=== PATIENT | female | born 1990 | race Caucasian/White ===

== ENCOUNTER 2018-02-26 18:49 | Emergency (ER) | payer SELFPAY ==
[2018-02-26 19:18] VITALS: BP 99/68
== END 2018-02-26 20:01 | disposition left against medical advice (07) ==
LOC: UCCORT 18:49
DX: T30.4 Corrosion of unspecified body region, unspecified degree (principal); Z53.21 Procedure and treatment not carried out due to patient leaving prior to being seen by health care provider

== ENCOUNTER 2018-11-26 19:35 | Emergency (ER) | payer OTHER ==
[2018-11-26 20:21] VITALS: BP 125/68
--- NOTE | 2018-11-26 21:30 | UC ---
Throat Pain/Nasal Jose HPI - HPI Summary HPI Summary: 28-year-old female presents with 2 day history of subjective fever, chills, general malaise, body aches, nasal congestion, clear nasal discharge, left ear pain, sore throat, and nonproductive cough. Denies dysphagia, shortness of breath, chest pain, abdominal pain, nausea, vomiting, or diarrhea. States she did receive her flu shot this year. - History of Current Complaint Chief Complaint: UCRespiratory Stated Complaint: ST,COUGH,BILATERAL EAR COMPLAINT Time Seen by Provider: 11/26/18 21:24 Hx Obtained From: Patient Hx Last Menstrual Period: 2 days Pain Intensity: 4 - Allergies/Home Medications Allergies/Adverse Reactions: Allergies Allergy/AdvReac Type Severity Reaction Status Date / Time No Known Allergies Allergy Verified 11/26/18 20:21 Home Medications: Home Medications Ibuprofen TAB* [Motrin TAB* 600 MG] 600 mg PO ONCE PRN 11/26/18 [History Confirmed 11/26/18] PMH/Surg Hx/FS Hx/Imm Hx Previously Healthy: Yes - Denies signifcant PMH - Surgical History Surgical History: Yes Surgery Procedure, Year, and Place: Tonsillectomy. PE Tubes - Family History Known Family History: Positive: Non-Contributory - Social History Occupation: Unemployed Lives: With Family Alcohol Use: None Substance Use Type: None Smoking Status (MU): Heavy Every Day Tobacco Smoker Type: Cigarettes Amount Used/How Often: 1/2 ppd Length of Time of Smoking/Using Tobacco: since age 15 Have You Smoked in the Last Year: Yes - Immunization History Most Recent Tetanus Shot: 2017 Review of Systems All Other Systems Reviewed And Are Negative: Yes Constitutional: Positive: Fever - Subjective, Chills Skin: Negative: Rash Eyes: Negative: Drainage, Eye Redness ENT: Positive: Sore Throat, Ear Ache, Nasal Discharge, Sinus Congestion. Negative: Sinus Pain/Tenderness Respiratory: Positive: Cough. Negative: Shortness Of Breath Cardiovascular: Negative: Palpitations, Chest Pain Gastrointestinal: Negative: Abdominal Pain, Vomiting, Diarrhea, Nausea Genitourinary: Positive: Negative Musculoskeletal: Positive: Negative Neurological: Positive: Negative Is Patient Immunocompromised?: No Physical Exam - Summary Physical Exam Summary: GENERAL APPEARANCE: Well developed, well nourished, alert and cooperative, and appears to be in no acute distress. EYES: Conjunctiva clear. No drainage. Vision is grossly intact. EARS: External auditory canals and tympanic membranes clear, hearing grossly intact. NOSE: Moderate-severe nasal congestion with clear nasal discharge. THROAT: Pharyngeal erythema. Tonsils surgically absent. Uvula midline. Oral cavity normal. Teeth and gingiva in good general condition. NECK: Neck supple, non-tender without lymphadenopathy. CARDIAC: Normal S1 and S2. No S3, S4 or murmurs. Rhythm is regular. There is no peripheral edema, cyanosis or pallor. Extremities are warm and well perfused. Capillary refill is less than 2 seconds. Peripheral pulses intact. LUNGS: Clear to auscultation without rales, rhonchi, wheezing or diminished breath sounds. Dry, non-productive cough. ABDOMEN: Positive bowel sounds. Soft, nondistended, nontender. No guarding or rebound. No masses or hepatosplenomegally. MUSKULOSKELETAL: ROM intact to all extremities. No joint erythema or tenderness. Normal muscular development. Normal gait. SKIN: Skin normal color, texture and turgor with no lesions or eruptions. Triage Information Reviewed: Yes Vital Signs: Initial Vital Signs Temp 98 F 11/26/18 20:16 Pulse 96 11/26/18 20:16 Resp 18 11/26/18 20:16 BP 125/68 11/26/18 20:16 Pulse Ox 99 11/26/18 20:16 Vital Signs Reviewed: Yes Throat Pain/Nasal Course/Dx - Course Course Of Treatment: 28-year-old female presents with 2 day history of subjective fever, chills, general malaise, body aches, nasal congestion, clear nasal discharge, left ear pain, sore throat, and nonproductive cough. Denies dysphagia, shortness of breath, chest pain, abdominal pain, nausea, vomiting, or diarrhea. States she did receive her flu shot this year. Afebrile. Vital signs stable. Exam reveals an adult female in no acute distress with moderate to severe nasal congestion, clear nasal discharge, intact, opaque TMs with good cone of light bilaterally, pharyngeal erythema, no cervical lymphadenopathy, clear bilateral breath sounds, and a dry nonproductive cough. Symptoms are suggestive of influenza or patient is declining testing at this time therefore I will simply treat empirically with Tamiflu and symptomatic treatment. Did review the risks and benefits of Tamiflu with the patient. She is to follow-up with her primary care provider in 7 days if symptoms do not improve. Anticipatory guidance and warning symptoms were reviewed with the patient. She verbalizes understanding and agrees with plan of care. - Differential Dx/Diagnosis Differential Diagnosis/HQI/PQRI: Influenza, Mononucleosis, Pharyngitis, Tonsillitis, URI Provider Diagnosis: Influenza Discharge - Sign-Out/Discharge Documenting (check all that apply): Patient Departure All imaging exams completed and their final reports reviewed: No Studies - Discharge Plan Condition: Stable Disposition: HOME Prescriptions: Benzonatate CAP* [Tessalon 100 MG CAP*] 100 mg PO TID PRN #30 cap PRN Reason: Cough Oseltamivir CAP* [Tamiflu CAP*] 75 mg PO BID #9 cap Patient Education Materials: Influenza (ED) Referrals: Gemini Keenan MD [Primary Care Provider] - 7 Days (If no improvement in symptoms) Additional Instructions: Your flu test in the clinic today was positive for influenza A. Start Tamiflu 1 capsule twice a day for 5 days. Get plenty of rest. Drink plenty of fluids to avoid dehydration especially if you are running any fever. Take over the counter acetaminophen (Tylenol) or ibuprofen (Advil, Motrin) according to directions as needed for pain or fever. Use an over the counter decongestant such as Sudafed according to directions for the congestion. Take Tessalon Perles 1 cap every 8 hours as needed for cough. Use salt water gargles several times a day if you have a sore throat. You may also use Chloraseptic spray or Cepacol lonzenges according to directions which contain a numbing medication and can provide some temporary relief from your sore throat. Follow up with your primary care provider in 7 days if symptoms persist. Seek immediate medical attention in the emergency room if you have fever greater than 100.5 F despite taking acetaminophen or ibuprofen, have chest pain , difficulty breathing, are unable to swallow, or have any worsening of symptoms. - Billing Disposition and Condition Condition: STABLE Disposition: Home - Attestation Statements Provider Attestation: I was available for consult. This patient was seen by the TOM. The patient was not presented to, seen by, or examined by me. EK
[2018-11-26] MEDS ORDERED: Benzonatate CAP* 100 MG PO ONE (21:38)
[2018-11-26] MEDS ORDERED: Oseltamivir CAP* 75 MG CAP PO ONE (21:38)
== END 2018-11-26 21:52 | disposition home or self-care (01) ==
LOC: UCCORT 19:35
DX: J11.1 Influenza due to unidentified influenza virus with other respiratory manifestations (principal); F17.210 Nicotine dependence, cigarettes, uncomplicated
CPT/HCPCS: 99212; A9270-GY; G0463

== ENCOUNTER 2021-05-14 16:52 | Inpatient (IN) ==
[2021-05-14] MEDS ORDERED: Magnesium Sulf 4 GM/100 ML IV 4,000 MG/100 ML BAG IVPB ONE ×2 (17:54→19:45)
[2021-05-14] MEDS ORDERED: Buffered Lidocaine 1% SYRIN 1 ml INTRADERM ONE (17:54)
[2021-05-14] MEDS ORDERED: Lactated Ringers 1000 ml BAG 1,000 ML IV ONE (17:54)
[2021-05-14] MEDS ORDERED: Magnesium Sulfate OB PREMIX 40 GM/1,000 ML BAG IVPB SCH ×2 (18:00)
[2021-05-14] MEDS ORDERED: Ampicillin ADVAN 2 GM in NS 0.9% 100 ml BAG 100 ML IVPB ONE (18:30)
[2021-05-14 18:36] LABS: ABS Lymphocytes 1.4 10^3/ul (1.0-4.8); ABS Monocytes 0.3 10^3/ul (0-0.8); ABS Neutrophils 5.8 10^3/ul (1.5-7.7); Eosinophil % 0.5 %; Hematocrit 30 % (35-47); Hemoglobin 10.9 g/dL (12.0-16.0); Lymphocyte % 18.2 %; Mean Corpuscular HGB Conc 36 g/dL (31-36); Mean Corpuscular Hemoglobin 31 pg (27-31); Mean Corpuscular Volume 85 fL (80-97); Mean Platelet Volume 8.8 fL (7.4-10.4); Platelet Count 224 10^3/uL (150-450); Red Blood Count 3.57 10^6 /uL (3.70-4.87); Red Cell Distribution Width 15 % (10-15); White Blood Count 7.6 10^3/uL (3.5-10.8)
[2021-05-14 18:40] LABS: Urine Appearance Cloudy; Urine Bilirubin Negative (Negative); Urine Blood Negative (Negative); Urine Color Amber; Urine Glucose Negative (Negative); Urine Ketones Negative (Negative); Urine Nitrite Negative (Negative); Urine Protein 1+(30 mg/dL) (Negative); Urine Specific Gravity 1.032 (1.002-1.030); Urine Urobilinogen Negative (Negative)
[2021-05-14 18:45] LABS: Urine Bacteria Absent (Absent); Urine Red Blood Cell Absent (Absent); Urine Squamous Epithelial Cell Present (Absent); Urine White Blood Cell 3+(>20/hpf) (Absent)
[2021-05-14] MEDS: Betamethasone 6 mg/ml 5 ml VIAL IM ONE (18:51)
[2021-05-14 18:53] LABS: Albumin 3.7 g/dL (3.2-5.2); Albumin/Globulin Ratio 1.2 (1-3); Calcium 8.2 mg/dL (8.6-10.3); EGFR African American 167.5 (>60); EGFR Non-African American 138.5 (>60); Potassium 3.8 mmol/L (3.5-5.0); Total Bilirubin 0.4 mg/dL (0.2-1.0); Total Protein 6.7 g/dL (6.4-8.9)
[2021-05-14 18:54] LABS: Urine Benzodiazepine Screen None Detected (None Detect); Urine Cannabinoids Screen None Detected (None Detect); Urine Opiates Screen None Detected (None Detect)
[2021-05-14] MEDS: Lactated Ringers 1000 ml BAG 1,000 ML IV SCH (19:53)
[2021-05-14] MEDS ORDERED: Magnesium Sulfate 2 gm BAG 2 GM/50 ML BAG IVPB SCH (20:00)
[2021-05-14] MEDS ORDERED: Magnesium Sulfate OB DRIP 2 GM/HR IVPB SCH (20:00)
[2021-05-14] MEDS: Ampicillin ADVAN 1 GM in NS 0.9% 50 ML 50 ML IVPB SCH (22:52)
[2021-05-15] MEDS: Ampicillin ADVAN 1 GM in NS 0.9% 50 ML 50 ML IVPB SCH ×5 (03:01→18:29)
[2021-05-15] MEDS ORDERED: Magnesium Sulfate OB PREMIX 40 GM/1,000 ML BAG IVPB SCH (08:31)
[2021-05-15] MEDS: Lactated Ringers 1000 ml BAG 1,000 ML IV SCH (08:34)
[2021-05-15] MEDS ORDERED: Calcium Carb (TUMS) 500 mg CHEW TAB ONE (14:50)
[2021-05-15] MEDS: Calcium Carb (TUMS) 500 mg CHEW TAB PO SCH (14:53)
[2021-05-15] MEDS: Betamethasone 6 mg/ml 5 ml VIAL IM ONE (19:20)
[2021-05-16] MEDS: Ampicillin ADVAN 1 GM in NS 0.9% 50 ML 50 ML IVPB SCH (03:25)
[2021-05-16] MEDS: Calcium Carb (TUMS) 500 mg CHEW TAB PO SCH (03:54)
[2021-05-16 12:17] VITALS: BP 119/70
[2021-05-16] MEDS ORDERED: Phenylephrine 40 mcg/mL 10mL (400mcg) SYRINGE ONE (12:55)
== END 2021-05-16 10:30 | disposition home or self-care (01) | DRG 563 ==
LOC: MCHOBOUT 16:52 → MCHOB 17:52
PROVIDERS: ADMIT Obstetrics & Gynecology; ATTEND Obstetrics & Gynecology

== ENCOUNTER 2021-07-17 22:48 | Inpatient (IN) ==
[2021-07-17] MEDS ORDERED: Buffered Lidocaine 1% SYRIN 1 ml INTRADERM ONE (23:07)
[2021-07-17] MEDS ORDERED: Penicillin G Potassium IV 5,000,000 UNITS in NS 0.9% 100 ml BAG 100 ML IVPB ONE (23:07)
[2021-07-17] MEDS ORDERED: Lactated Ringers 1000 ml BAG 1,000 ML IV ONE ×2 (23:11→23:29)
[2021-07-17 23:24] LABS: ABS Basophils 0.1 10^3/ul (0-0.2); ABS Lymphocytes 1.6 10^3/ul (1.0-4.8); ABS Monocytes 0.4 10^3/ul (0-0.8); ABS Neutrophils 5.5 10^3/ul (1.5-7.7); Eosinophil % 0.6 %; Hematocrit 33 % (35-47); Hemoglobin 11.2 g/dL (12.0-16.0); Mean Corpuscular HGB Conc 34 g/dL (31-36); Mean Corpuscular Hemoglobin 27 pg (27-31); Mean Corpuscular Volume 80 fL (80-97); Platelet Count 237 10^3/uL (150-450); Red Blood Count 4.11 10^6 /uL (3.70-4.87); Red Cell Distribution Width 15 % (10-15); White Blood Count 7.6 10^3/uL (3.5-10.8)
[2021-07-17] MEDS ORDERED: Phenylephrine 40 mcg/mL 10mL (400mcg) SYRINGE IV PUSH PRN ×2 (23:29)
[2021-07-17] MEDS ORDERED: EPHEDrine (Pressors) 50 MG/ML VIAL IV PUSH PRN ×2 (23:29)
[2021-07-17] MEDS ORDERED: Sodium Citrate/Citric Acid LIQ 15 ML UDC PO PRN (23:29)
[2021-07-17] MEDS ORDERED: OBEPIDURAL 250 ML EPIDURAL ONE (23:32)
[2021-07-17] MEDS ORDERED: OBEPIDURAL 250 ML EPIDURAL SCH (23:45)
[2021-07-17] MEDS ORDERED: Lactated Ringers 1000 ml BAG 1,000 ML IV SCH ×2 (23:45)
[2021-07-17 23:55] LABS: Rapid COVID-19 Molecular Undetected (Undetected)
[2021-07-18] MEDS ORDERED: Oxytocin in LR 20 UNITS/1,000 ML BAG IVPB ONE (00:16)
[2021-07-18 00:58] LABS: Urine Appearance Cloudy; Urine Bilirubin Negative (Negative); Urine Blood 3+ (Negative); Urine Color Yellow; Urine Glucose Negative (Negative); Urine Ketones Trace (Negative); Urine Nitrite Negative (Negative); Urine Protein 1+(30 mg/dL) (Negative); Urine Specific Gravity 1.036 (1.002-1.030); Urine Urobilinogen Negative (Negative)
[2021-07-18 01:15] LABS: Urine Bacteria 1+ (Absent); Urine Red Blood Cell 3+(>10/hpf) (Absent); Urine White Blood Cell 2+(11-20/hpf) (Absent)
[2021-07-18 01:16] LABS: Urine Benzodiazepine Screen None Detected (None Detect); Urine Cannabinoids Screen None Detected (None Detect); Urine Opiates Screen None Detected (None Detect)
[2021-07-18] MEDS: Penicillin G Potassium IV 3,000,000 UNITS in NS 0.9% 100 ml BAG 100 ML IVPB SCH ×2 (03:15→07:12)
[2021-07-18] MEDS ORDERED: Dibucaine 1% OINT 28.35 GM TUBE PR PRN (10:14)
[2021-07-18] MEDS ORDERED: RHO D Immune Globulin (HUMAN) 300 MCG = 1,500 I.U. INJ IM PRN (10:14)
[2021-07-18] MEDS ORDERED: Witch Hazel PAD JAR TOPICAL PRN (10:14)
[2021-07-18] MEDS ORDERED: Lactated Ringers 1000 ml BAG 1,000 ML IV SCH (11:00)
[2021-07-18] MEDS ORDERED: Oxytocin in LR 20 UNITS/1,000 ML BAG IVPB SCH (11:00)
[2021-07-19 07:07] LABS: ABS Eosinophils 0.1 10^3/ul (0-0.6); ABS Lymphocytes 1.4 10^3/ul (1.0-4.8); ABS Monocytes 0.5 10^3/ul (0-0.8); ABS Neutrophils 5.4 10^3/ul (1.5-7.7); Eosinophil % 0.8 %; Hematocrit 25 % (35-47); Hemoglobin 8.6 g/dL (12.0-16.0); Lymphocyte % 19.4 %; Mean Corpuscular HGB Conc 34 g/dL (31-36); Mean Corpuscular Hemoglobin 28 pg (27-31); Mean Corpuscular Volume 82 fL (80-97); Mean Platelet Volume 9.1 fL (7.4-10.4); Platelet Count 163 10^3/uL (150-450); Red Blood Count 3.05 10^6 /uL (3.70-4.87); Red Cell Distribution Width 15 % (10-15); White Blood Count 7.4 10^3/uL (3.5-10.8)
[2021-07-19] MEDS ORDERED: Measles, Mumps,Rubella VACC 0.5 ML/VIAL SUBCUT ONE (09:00)
[2021-07-20 09:06] VITALS: BP 118/69
== END 2021-07-20 10:14 | disposition home or self-care (01) | DRG 560 ==
LOC: MCHOBOUT 22:48 → MCHOB 23:07
PROVIDERS: ADMIT Midwife; ATTEND Midwife